=== PATIENT | male | born 1975 | race Two or more races ===

== ENCOUNTER 2022-01-09 09:52 | Emergency (ER) | payer MEDICAID, OTHER ==
[~2022-01-09] VITALS: Ht 160 cm; Wt 77.1 kg
[2022-01-09 09:52] VITALS: BP 134/84
[2022-01-09] MEDS ORDERED: NAPR500T31 PO (11:09)
[2022-01-09] MEDS ORDERED: CEPH-509 PO (11:15)
== END 2022-01-09 11:15 | disposition home or self-care (01) ==
LOC: ER 09:52
DX: S46.912A Strain of unspecified muscle, fascia and tendon at shoulder and upper arm level, left arm, initial encounter (principal); S70.02XA Contusion of left hip, initial encounter; I10 Essential (primary) hypertension; E11.9 Type 2 diabetes mellitus without complications; E78.5 Hyperlipidemia, unspecified; Z79.899 Other long term (current) drug therapy; V89.9XXA Person injured in unspecified vehicle accident, initial encounter; Y93.89 Activity, other specified; Y92.89 Other specified places as the place of occurrence of the external cause; Y99.8 Other external cause status
CPT/HCPCS: 73010